=== PATIENT | male | born 1990 | race Caucasian/White ===

== ENCOUNTER 2016-06-15 19:38 | Emergency (ER) | payer OTHER ==
[~2016-06-15] VITALS: Ht 170.2 cm; Wt 63.5 kg
[~2016-06-15 19:38] MED LIST: ZYRTEC ALLERGY10 MG PO
--- NOTE | 2016-06-15 20:58 | ED EYE COMPLAINT ---
History of Present Illness General Chief Complaint: Eye Problems Stated Complaint: FOREIGN BODY R EYE Source: patient Exam Limitations: no limitations Vital Signs & Intake/Output Vital Signs & Intake/Output Vital Signs Date Time Temp Pulse Resp B/P B/P Pulse O2 O2 Flow FiO2 Mean Ox Delivery Rate 06/16 2103 98.7 82 18 130/72 98 Room Air 06/15 2102 98 Room Air 06/15 1946 98.6 88 20 132/77 98 Room Air ED Intake and Output 06/16 0000 06/15 1200 Intake Total Output Total Balance Patient 140 lb Weight Allergies Coded Allergies: MDX - Peanuts (PEANUTS) (Severe, ANAPHYLAXIS 08/01/13) Reconcile Medications CETIRIZINE HCL (Zyrtec) 10 MG CAPSULE 1 CAP PO DAILY ALLERGIES (Reported) Polytrim (Polytrim Eye Drops) 10,000 UNIT-1 MG/ML DROPS 2 GTT OPH Q6 conjunctivitis x 7 days Triage Note: PT TO ED C/O ?WOOD CHIP IN RT EYE. DENIES PAIN, CHANGE OF VISION. FLUSHED AT HOME ED MANAGER Triage Nurses Notes Reviewed? yes Onset: Gradual Duration: hour(s): Timing: single episode today Injury Environment: home Severity: mild Left Eye Associated Symptoms: normal Right Eye Associated Symptoms: "I think there is a small piece of wood in my eye." HPI: 26 yo gentleman presents with the sensation of a foreign body in his right eye. He notes that he was blowing leaves in his yard. "I felt a andrew of wood go into my eye" at approximately 4:30. He notes, "I felt fine, but then it started to burn over the next few hours." No vision changes. He is otherwise well. Past History Travel History Traveled to [place] past 21 day No Medical History Any Pertinent Medical History? see below for history EENT: allergies Tetanus Vaccine: 08/01/13 Surgical History Surgical History: none Psychosocial History What is your primary language Latvian Tobacco Use: Quit >30 days ago ETOH Use: occasional use Illicit Drug Use: denies illicit drug use Family History Hx Contributory? No Review of Systems Review of Systems Constitutional: Reports: no symptoms. Eyes: Reports: no symptoms. Ear: Reports: no symptoms. Nose: Reports: no symptoms. Mouth: Reports: no symptoms. Throat: Reports: no symptoms. Respiratory: Reports: no symptoms. Cardiovascular: Reports: no symptoms. GI: Reports: no symptoms. Genitourinary: Reports: no symptoms. Musculoskeletal: Reports: no symptoms. Skin: Reports: no symptoms. Neurological/Psychological: Reports: no symptoms. Hematologic/Endocrine: Reports: no symptoms. Immunologic/Allergic: Reports: no symptoms. All Other Systems: Reviewed and Negative Physical Exam General Appearance: well developed/nourished General Inspection: normal inspection Eyelid: normal inspection Conjunctiva/Sclera: normal inspection Cornea: normal inspection EOM: intact Pupil: normal accommodation, normal pupil, PERRL General Inspection: normal inspection Eyelid: normal inspection Conjunctiva/Sclera: 0.5 mm punctate brown fb at 7pm on conjunctiva. minimal conjunctival injection. Cornea: normal inspection EOM: intact Pupil: normal accommodation, normal pupil, PERRL Physical Exam Head: atraumatic, normal appearance Nose: normal inspection Progress Differential Diagnosis: foreign body vs conjunctivitis vs corneal abrasion Plan of Care: pt felt better with tetracaine. attempted dislodge 0.5mm andrew off conjunctiva with q-tip. Unsuccessful... Pt referred to optho. Rx for polytrim. Departure Departure Disposition: HOME OR SELF CARE Condition: Stable Clinical Impression Primary Impression: Foreign body of conjunctiva Referrals: PAULA FELICIANO,HEMA (PCP/Family) Departure Forms: Customer Survey General Discharge Information Prescriptions: Current Visit Scripts Polytrim (Polytrim Eye Drops) 2 GTT OPH Q6 #20 ML x 7 days
[2016-06-15] MEDS ORDERED: POLYTRIM EYE DR10 ML OPH (20:59)
[2016-06-15 21:04] VITALS: BP 130/72
== END 2016-06-15 21:08 ==
LOC: ERH 19:38
DX: T15.11XA Foreign body in conjunctival sac, right eye, initial encounter (principal)